=== PATIENT | female | born 1985 | race Caucasian/White ===

== ENCOUNTER 2018-06-27 11:12 | Emergency (ER) | payer SELFPAY ==
[~2018-06-27] VITALS: Ht 172.7 cm; Wt 99.8 kg
--- NOTE | 2018-06-27 11:29 | ED General ---
General Chief Complaint: Facial Problems Stated Complaint: FACIAL SWELLING Source of Information: Patient Exam Limitations: No Limitations History of Present Illness Date Seen by Provider: Jun 27, 2018 Time Seen by Provider: 11:28 Initial Comments To ER with left-sided facial swelling for about 3 days. No fevers. Painful open her mouth and chew. Timing/Duration: 2-3 Days Severity: Moderate Associated Systoms: Denies Symptoms Allergies and Home Medications Allergies Coded Allergies: No Known Drug Allergies (Unverified , 06/27/18) Home Medications No Active Prescriptions or Reported Meds Patient Home Medication List Home Medication List Reviewed: Yes Review of Systems Review of Systems Constitutional: see HPI EENTM: see HPI, mouth swelling Respiratory: no symptoms reported Cardiovascular: no symptoms reported Genitourinary: no symptoms reported Musculoskeletal: no symptoms reported Skin: no symptoms reported Psychiatric/Neurological: No Symptoms Reported Hematologic/Lymphatic: No Symptoms Reported Past Xbytkpz-Zgxgex-Prupuj Hx Patient Social History Alcohol Use: Denies Use Recreational Drug Use: No Smoking Status: Never a Smoker Recent Hopitalizations: No Immunizations Up To Date Tetanus Booster (TDap): Unknown Seasonal Allergies Seasonal Allergies: No Past Medical History Surgeries: No Respiratory: No Cardiac: No Neurological: No Genitourinary: No Gastrointestinal: No Musculoskeletal: No Endocrine: No HEENT: No Cancer: No Psychosocial: No Integumentary: No Blood Disorders: No Physical Exam Vital Signs Vital Signs - First Documented 06/27/18 11:18 Temp 96.0 Pulse 105 Resp 20 B/P (MAP) 121/92 (102) Pulse Ox 100 O2 Delivery Room Air Capillary Refill : Height, Weight, BMI Height: '" Weight: lbs. oz. kg; BMI Method: General Appearance: No Apparent Distress, WD/WN Eyes: Bilateral Eye Normal Inspection, Bilateral Eye PERRL, Bilateral Eye EOMI , Bilateral Eye Other (no double vision) HEENT: PERRL/EOMI, TMs Normal, Other (there is swelling to the left side of the face with edema of the left lower eyelid. There is no external source of infection or wound visible. There is tenderness to palpation along the left upper buccal mucosa suggesting dental abscess. CT of the face to evaluate for fluid collection versus cellulitis) Neck: Full Range of Motion, Normal Inspection Respiratory: No Accessory Muscle Use, No Respiratory Distress Cardiovascular: Regular Rate, Rhythm, Normal Peripheral Pulses Gastrointestinal: Normal Bowel Sounds, Non Tender, Soft Neurologic/Psychiatric: Alert, Oriented x3, No Motor/Sensory Deficits Skin: Normal Color, Warm/Dry Progress/Results/Core Measures Suspected Sepsis SIRS Temperature: Pulse: Respiratory Rate: Laboratory Tests 06/27/18 11:25: White Blood Count 14.1H Blood Pressure / Mean: Laboratory Tests 06/27/18 11:25: Creatinine 0.76, Platelet Count 333 Results/Orders Lab Results Laboratory Tests Test 06/27/18 11:25 Range/Units White Blood Count 14.1 H 4.3-11.0 10^3/uL Red Blood Count 5.45 4.35-5.85 10^6/uL Hemoglobin 15.3 11.5-16.0 G/DL Hematocrit 45 35-52 % Mean Corpuscular Volume 82 80-99 FL Mean Corpuscular Hemoglobin 28 25-34 PG Mean Corpuscular Hemoglobin Concent 34 32-36 G/DL Red Cell Distribution Width 13.9 10.0-14.5 % Platelet Count 333 130-400 10^3/uL Mean Platelet Volume 9.2 7.4-10.4 FL Neutrophils (%) (Auto) 72 42-75 % Lymphocytes (%) (Auto) 18 12-44 % Monocytes (%) (Auto) 10 0-12 % Eosinophils (%) (Auto) 0 0-10 % Basophils (%) (Auto) 0 0-10 % Neutrophils # (Auto) 10.2 H 1.8-7.8 X 10^3 Lymphocytes # (Auto) 2.5 1.0-4.0 X 10^3 Monocytes # (Auto) 1.4 H 0.0-1.0 X 10^3 Eosinophils # (Auto) 0.1 0.0-0.3 10^3/uL Basophils # (Auto) 0.0 0.0-0.1 10^3/uL Neutrophils % (Manual) 74 % Lymphocytes % (Manual) 17 % Monocytes % (Manual) 8 % Eosinophils % (Manual) 0 % Basophils % (Manual) 0 % Reactive Lymphocytes 1 % Blood Morphology Comment NORMAL Sodium Level 140 135-145 MMOL/L Potassium Level 3.6 3.6-5.0 MMOL/L Chloride Level 103 98-107 MMOL/L Carbon Dioxide Level 27 21-32 MMOL/L Anion Gap 10 5-14 MMOL/L Blood Urea Nitrogen 6 L 7-18 MG/DL Creatinine 0.76 0.60-1.30 MG/DL Estimat Glomerular Filtration Rate > 60 BUN/Creatinine Ratio 8 Glucose Level 104 70-105 MG/DL Calcium Level 10.3 H 8.5-10.1 MG/DL My Orders Orders - DANIEL ROMERO APRN Cbc With Automated Diff (06/27/18 11:25) Basic Metabolic Panel (06/27/18 11:25) Ct Maxillofacial W (06/27/18 11:25) Iv Heplock-Insert (Order) (06/27/18 11:25) Ketorolac Injection (Toradol Injection) (06/27/18 11:30) Clindamycin 900 Mg/50 Ml Ivpb (Cleocin P (06/27/18 11:30) Manual Differential (06/27/18 11:25) Medications Given in ED Current Medications Medications Dose Ordered Sig/Juan Manuel Route Start Time Stop Time Status Last Admin Dose Admin Clindamycin Phosphate/Dextrose 50 ml @ 100 mls/hr ONCE ONCE IV 06/27/18 11:30 06/27/18 11:59 DC 06/27/18 12:07 100 MLS/HR Ketorolac Tromethamine 15 mg ONCE ONCE IVP 06/27/18 11:30 06/27/18 11:31 DC 06/27/18 11:41 15 MG Vital Signs/I&O 06/27/18 11:18 Temp 96.0 Pulse 105 Resp 20 B/P (MAP) 121/92 (102) Pulse Ox 100 O2 Delivery Room Air Capillary Refill : Departure Impression Primary Impression: Sinusitis, acute maxillary Qualified Codes: J01.00 - Acute maxillary sinusitis, unspecified Additional Impressions: Facial cellulitis Dental infection Disposition: HOME, SELF-CARE Condition: Stable Departure-Patient Inst. Decision time for Depature: 12:50 Referrals: NO,LOCAL PHYSICIAN (PCP) Primary Care Physician KATH PARNELL DDChiquita Patient Instructions: Cellulitis (Skin Infection), Adult (DC) Add. Discharge Instructions: 1. You need to go to [facility] on on [address] today to schedule an appointment for follow-up as soon as possible.if you have your own dentist you may simply call them and make an appointment for follow-up this week. It is imperative that you take the antibiotics as directed. Pain medication. Return to ER for fevers or worsening symptoms. All discharge instructions reviewed with patient and/or family. Voiced understanding. Scripts Hydrocodone/Acetaminophen ([place] 5-325 Tablet) 1 Each Tablet 1 EACH PO Q6H PRN for PAIN-MODERATE MDD 10, #10 TAB Do not fill unless antibiotic is also filled. Prov: DANIEL ROMERO APRN 06/27/18 Penicillin V Potassium (Penicillin V Potassium) 500 Mg Tablet 500 MG PO TID, #30 TAB Prov: DANIEL ROMERO APRN 06/27/18 Work/School Note: Work Release Form Date Seen in the Emergency Department: Jun 27, 2018 Return to Work: Jun 30, 2018 DANIEL ROMERO APRN Jun 27, 2018 11:29
[2018-06-27] MEDS ORDERED: KETOROLAC 30 MG/ML VIAL IVP ONE (11:30)
[2018-06-27] MEDS ORDERED: CLINDAMYCIN 900 MG/50 ML IVPB 50 ML IV ONE (11:30)
[2018-06-27 11:36] LABS: BASOPHILS % (AUTO) 0 % (0-10); EOSINOPHILS # (AUTO) 0.1 10^3/uL (0.0-0.3); EOSINOPHILS % (AUTO) 0 % (0-10); HEMATOCRIT 45 % (35-52); HEMOGLOBIN 15.3 G/DL (11.5-16.0); LYMPHOCYTES # (AUTO) 2.5 X 10^3 (1.0-4.0); LYMPHOCYTES % (AUTO) 18 % (12-44); MEAN CORPUSCULAR HEMOGLOBIN 28 PG (25-34); MEAN CORPUSCULAR HGB CONC 34 G/DL (32-36); MEAN CORPUSCULAR VOLUME 82 FL (80-99); MEAN PLATELET VOLUME 9.2 FL (7.4-10.4); MONOCYTES # (AUTO) 1.4 X 10^3 (0.0-1.0); MONOCYTES % (AUTO) 10 % (0-12); NEUTROPHILS # (AUTO) 10.2 X 10^3 (1.8-7.8); NEUTROPHILS % (AUTO) 72 % (42-75); PLATELET COUNT 333 10^3/uL (130-400); RED CELL DISTRIBUTION WIDTH 13.9 % (10.0-14.5); WHITE BLOOD COUNT 14.1 10^3/uL (4.3-11.0)
[2018-06-27 11:53] LABS: BUN/CREATININE RATIO 8; CALCIUM 10.3 MG/DL (8.5-10.1); CARBON DIOXIDE 27 MMOL/L (21-32); CHLORIDE 103 MMOL/L (98-107); CREATININE SERUM 0.76 MG/DL (0.60-1.30); GFR ESTIMATED > 60; GLUCOSE 104 MG/DL (70-105); POTASSIUM 3.6 MMOL/L (3.6-5.0); SODIUM 140 MMOL/L (135-145)
[2018-06-27 12:23] LABS: BASOPHILS % (MANUAL) 0 %; EOSINOPHILS % (MANUAL) 0 %; LYMPHOCYTES % (MANUAL) 17 %; MONOCYTES % (MANUAL) 8 %; NEUTROPHILS % (MANUAL) 74 %; REACTIVE LYMPHOCYTES 1 %
[2018-06-27 12:24] LABS: RBC MORPH NORMAL
[2018-06-27] MEDS ORDERED: CLIN300C11 PO (12:53)
[2018-06-27] MEDS ORDERED: HYDR-4226 PO ×2 (12:53→12:58)
[2018-06-27] MEDS ORDERED: PENI500T PO (12:57)
--- NOTE | 2018-06-27 13:14 | Diagnostic Imaging Report ---
PROCEDURE: CT maxillofacial with contrast. TECHNIQUE: After intravenous administration of contrast, axial images were obtained through the face and reformatted into coronal and sagittal planes. Auto Exposure Controls were utilized during the CT exam to meet ALARA standards for radiation dose reduction. INDICATION: Left-sided facial swelling. FINDINGS: Both globes are unremarkable. No retro-orbital fluid collection is seen. Extraocular musculature appears to be symmetric bilaterally. There is soft tissue swelling in the left premaxillary tissues. Left maxillary sinus is opacified. Left facial soft tissues at the level of the mandible also show some thickening and inflammatory stranding. No discrete fluid collection is identified, however. There are some enlarged lymph nodes in the left neck. The lymph node anterior to the left submandibular gland measures 18 x 13 mm. There is slightly enlarged left jugulodigastric node measuring 18 mm x 12 mm. Submandibular and parotid glands are symmetric bilaterally. No thyroid mass is seen. Larynx and parapharyngeal fat planes are preserved. Posterior nasopharynx is unremarkable. IMPRESSION: Findings consistent with left facial cellulitis and left maxillary sinusitis. There is some probable reactive lymphadenopathy in the left neck. No fluid collection or abscess is identified. Dictated by: Dictated on workstation # [id number]
[2018-06-27 13:26] VITALS: BP 117/81
== END 2018-06-27 13:26 | disposition home or self-care (01) ==
LOC: ER 11:13
DX: J01.00 Acute maxillary sinusitis, unspecified (principal); L03.211 Cellulitis of face; K04.7 Periapical abscess without sinus
CPT/HCPCS: 36415; 70487; 80048; 85007; 85027; 96365; 96375

== ENCOUNTER 2020-04-15 19:51 | Emergency (ER) | payer SELFPAY ==
[~2020-04-15] VITALS: Ht 167 cm; Wt 90.0 kg
[~2020-04-15 19:51] MED LIST: CLIN300C12 PO; HYDR-4226 PO; PENI500T PO
--- NOTE | 2020-04-15 20:10 | ED GU-Female ---
General Chief Complaint: Female Reproductive Stated Complaint: EXCESSIVE MENSTRUAL BLEEDING / BACK PAIN Nursing Triage Note: PATIENT STATES HAS BEEN ON PERIOD TWO DAYS. STATES BLEEDING X2 HOURS HEAVY Nursing Sepsis Screen: No Definite Risk Source: patient Exam Limitations: no limitations History of Present Illness Date Seen by Provider: Apr 15, 2020 Time Seen by Provider: 20:10 Initial Comments This is a well appearing 35 yo female who presents to the ER with c/o of heavy menstrual flow and abdominal cramping. States she has been on her menstrual cycle for two days and her bleeding appears to be excessively heavy. Reports heavy menstrual cycles in the past. States she went through 3 tampons in an hour and wants to make sure she is not dying. Denies sexual activity or vaginal trauma. Denies fever, chills, cough, shortness of breath, chest pain, nausea/vomiting/diarrhea. Allergies and Home Medications Allergies Coded Allergies: No Known Drug Allergies (Unverified , 06/27/18) Home Medications Hydrocodone/Acetaminophen 1 Each Tablet, 1 EACH PO Q6H PRN for PAIN-MODERATE Do not fill unless antibiotic is also filled. Prescribed by: DANIEL ROMERO on 06/27/18 1258 Penicillin V Potassium 500 Mg Tablet, 500 MG PO TID Prescribed by: DANIEL ROMERO on 06/27/18 1257 Sulfamethoxazole/Trimethoprim 1 Each Tablet, 1 EACH PO Q12H Prescribed by: GILSON GUO on 04/15/20 2208 Patient Home Medication List Home Medication List Reviewed: Yes Review of Systems Review of Systems Constitutional: no symptoms reported EENTM: no symptoms reported Respiratory: no symptoms reported Cardiovascular: no symptoms reported Gastrointestinal: no symptoms reported Genitourinary: burning, dysuria, frequency Musculoskeletal: no symptoms reported Skin: no symptoms reported Psychiatric/Neurological: No Symptoms Reported Endocrine: No Symptoms Reported Hematologic/Lymphatic: No Symptoms Reported; Denies Blood Clots Past Sesklzo-Exveiw-Gegnnu Hx Patient Social History Recent Infectious Disease Expo: No Recent Hopitalizations: No Immunizations Up To Date Tetanus Booster (TDap): Unknown Seasonal Allergies Seasonal Allergies: No Past Medical History Surgeries: No Respiratory: No Cardiac: No Neurological: No : No Last Menstrual Period: Apr 13, 2020 Hx : 3 Hx Para: 3 Hx Total # of Abortions (Sp): 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 oz. 99.201525xv; 32.00 BMI Method:Stated General Appearance: WD/WN, no apparent distress HEENT: PERRL/EOMI, normal ENT inspection Neck: full range of motion, normal inspection Cardiovascular: normal peripheral pulses, regular rate, rhythm, no murmur Respiratory: lungs clear, normal breath sounds Gastrointestinal: normal bowel sounds, soft, tenderness (Low abd/suprapubic pain ) Genital/Rectal: normal vaginal exam; No blood at urethral meatus Pelvic: normal external exam, normal adnexa, no cerv. motion tender, no masses, vaginal bleeding, other (cervix closed) Back: normal inspection, no CVA tenderness Extremities: non-tender, normal inspection, normal capillary refill Neurologic/Psychiatric: no motor/sensory deficits, alert, normal mood/affect, oriented x 3 Skin: normal color, warm/dry Progress/Results/Core Measures Suspected Sepsis Recent Fever Within 48 Hours: No Infection Criteria Present: None New/Unexplained Altered Menta: No Sepsis Screen: No Definite Risk SIRS Temperature: Pulse: 77 Respiratory Rate: 20 Laboratory Tests 04/15/20 20:06: White Blood Count 14.2H Blood Pressure 115 /97 Mean: 103 Laboratory Tests 04/15/20 20:06: Creatinine 0.78, Platelet Count 435H, Total Bilirubin 0.3 Results/Orders Lab Results Laboratory Tests Test 04/15/20 20:06 04/15/20 20:44 04/15/20 21:54 Range/Units White Blood Count 14.2 H 4.3-11.0 10^3/uL Red Blood Count 5.24 H 3.80-5.11 10^6/uL Hemoglobin 13.8 11.5-16.0 g/dL Hematocrit 43 35-52 % Mean Corpuscular Volume 82 80-99 fL Mean Corpuscular Hemoglobin 26 25-34 pg Mean Corpuscular Hemoglobin Concent 32 32-36 g/dL Red Cell Distribution Width 13.3 10.0-14.5 % Platelet Count 435 H 130-400 10^3/uL Mean Platelet Volume 9.6 9.0-12.2 fL Immature Granulocyte % (Auto) 0 % Neutrophils (%) (Auto) 70 42-75 % Lymphocytes (%) (Auto) 22 12-44 % Monocytes (%) (Auto) 6 0-12 % Eosinophils (%) (Auto) 0 0-10 % Basophils (%) (Auto) 0 0-10 % Neutrophils # (Auto) 10.0 H 1.8-7.8 10^3/uL Lymphocytes # (Auto) 3.1 1.0-4.0 10^3/uL Monocytes # (Auto) 0.9 0.0-1.0 10^3/uL Eosinophils # (Auto) 0.1 0.0-0.3 10^3/uL Basophils # (Auto) 0.1 0.0-0.1 10^3/uL Immature Granulocyte # (Auto) 0.1 0.0-0.1 10^3/uL Neutrophils % (Manual) 75 % Lymphocytes % (Manual) 21 % Monocytes % (Manual) 3 % Blood Morphology Comment NORMAL Sodium Level 140 135-145 MMOL/L Potassium Level 4.0 3.6-5.0 MMOL/L Chloride Level 104 98-107 MMOL/L Carbon Dioxide Level 25 21-32 MMOL/L Anion Gap 11 5-14 MMOL/L Blood Urea Nitrogen 6 L 7-18 MG/DL Creatinine 0.78 0.60-1.30 MG/DL Estimat Glomerular Filtration Rate > 60 BUN/Creatinine Ratio 8 Glucose Level 103 70-105 MG/DL Calcium Level 9.7 8.5-10.1 MG/DL Corrected Calcium 9.4 8.5-10.1 MG/DL Total Bilirubin 0.3 0.1-1.0 MG/DL Aspartate Amino Transf (AST/SGOT) 18 5-34 U/L Alanine Aminotransferase (ALT/SGPT) 29 0-55 U/L Alkaline Phosphatase 90 40-136 U/L Total Protein 7.8 6.4-8.2 GM/DL Albumin 4.4 3.2-4.5 GM/DL Serum Test, Qualitative NEGATIVE NEGATIVE Urine Color YELLOW Urine Clarity CLEAR Urine pH 6.0 5-9 Urine Specific [place] >=1.030 1.016-1.022 Urine Protein 2+ H NEGATIVE Urine Glucose (UA) NEGATIVE NEGATIVE Urine Ketones NEGATIVE NEGATIVE Urine Nitrite POSITIVE H NEGATIVE Urine Bilirubin NEGATIVE NEGATIVE Urine Urobilinogen 0.2 < = 1.0 MG/DL Urine Leukocyte Esterase TRACE H NEGATIVE Urine RBC (Auto) 2+ H NEGATIVE Urine RBC 10-25 H /HPF Urine WBC 10-25 H /HPF Urine Crystals NONE /LPF Urine Bacteria LARGE H /HPF Urine Casts NONE /LPF Urine Mucus LARGE H /LPF Urine Culture Indicated YES Urine Opiates Screen NEGATIVE NEGATIVE Urine Oxycodone Screen NEGATIVE NEGATIVE Urine Methadone Screen NEGATIVE NEGATIVE Urine Propoxyphene Screen NEGATIVE NEGATIVE Urine Barbiturates Screen NEGATIVE NEGATIVE Ur Tricyclic Antidepressants Screen NEGATIVE NEGATIVE Urine Phencyclidine Screen NEGATIVE NEGATIVE Urine Amphetamines Screen POSITIVE H NEGATIVE Urine Methamphetamines Screen POSITIVE H NEGATIVE Urine Benzodiazepines Screen NEGATIVE NEGATIVE Urine Cocaine Screen NEGATIVE NEGATIVE Urine Cannabinoids Screen POSITIVE H NEGATIVE Micro Results Microbiology 04/15/20 Genital Culture - Preliminary, Resulted 04/15/20 Wet Prep - Final, Resulted 04/15/20 Urine Culture - Preliminary, Resulted Gram Negative Azeem My Orders Orders - GILSON GUO ALL AROUND PATTERNMAKER Cbc With Automated Diff (04/15/20 20:09) Comprehensive Metabolic Panel (04/15/20 20:09) Hcg,Qualitative Serum (04/15/20 20:09) Manual Differential (04/15/20 20:06) Strain Urine (04/15/20 20:32) Ua Culture If Indicated (04/15/20 20:32) Ketorolac Injection (Toradol Injection) (04/15/20 20:45) Drug Screen Stat (Urine) (04/15/20 20:39) Iohexol Injection (Omnipaque 350 Mg/Ml 1 (04/15/20 21:00) Received Contrast (Hold Metformin- Contr (04/15/20 21:00) Ns (Ivpb) (Sodium Chloride 0.9% Ivpb Bag (04/15/20 21:00) Ct Abdomen/Pelvis W (04/15/20 20:32) Urine Culture (04/15/20 20:44) Ceftriaxone For Iv Use (Rocephin For I (04/15/20 21:30) Neisseria Gonorrhea Swab (04/15/20 21:57) Genital Culture (04/15/20 21:57) Chlamydia Trachomatis Swab (04/15/20 21:57) Azithromycin Tablet (Zithromax Tablet) (04/15/20 22:15) Wet Prep (04/15/20 21:54) Medications Given in ED Vital Signs/I&O Capillary Refill : Less Than 3 Seconds Blood Pressure Mean: 103 Progress Note : Progress Note Pt. examined and appears very anxious. She appears to be under the influence of an illicit substance, will ad UDS to UA. Labs ordered to assess Hgb and signs of infection. CT abd/pelvis ordered to r/o any abdominal sources of infection. Toradol 30mg IVP ordered for pain. CT abd/pelvis reviewed, incidental cholelithiasis with no evidence of cho lecystitis. No acute findings. Labs reviewed, elevated WBC-14.2, Hgb stable. She is noted to have UTI. Additionally, she is positive for methamphetamines and cannabis. Orders placed for STI testing, and Rocephin 1gm IVP and Azithromycin 1000mg PO x1. Reviewed discharge POC and she is agreeable with plan. Diagnostic Imaging Diagonstic Imaging: CT Plain Films/CT/US/NM/MRI: abdomen, pelvis Comments Date of Exam:04/15/20 CT ABDOMEN/PELVIS W TECHNIQUE: CT abdomen and pelvis with contrast. All CT scans use one or more of the following dose optimizing techniques: automated exposure control, MA and/or KvP adjustment based on patient size and exam type or iterative reconstruction. INDICATION: Lower abdominal pain and menorrhagia. Vaginal bleeding for two days. COMPARISON STUDIES: None. FINDINGS: The lung bases are clear. There is fatty liver. There is a 2.2 cm gallstone. The spleen, pancreas, adrenal glands and kidneys appear normal. There is a normal appendix. The uterus and adnexal structures appear normal. Bowel loops demonstrate no inflammatory or obstructive changes. There is no ascites or free air. There is some air within the urinary bladder. This could be due to infection or iatrogenic. The osseous structures appear unremarkable. IMPRESSION: 1. Cholelithiasis. 2. There is some air in the urinary bladder which could be due to infection or iatrogenic. Dictated by: Dictated on workstation # [id number] Dict: 04/15/202137 Trans: 04/15/202154 [facility] [id number] Interpreted by: SHELLI DAMON MD Electronically signed by: SHELLI DAMON MD 04/15/20 [id number] Reviewed: Reviewed by Me Departure Impression Primary Impression: Menorrhagia with irregular cycle Additional Impression: Urinary tract infection Disposition: HOME, SELF-CARE Condition: Improved Departure-Patient Inst. Decision time for Depature: 22:05 Referrals: NO,LOCAL PHYSICIAN (PCP) Primary Care Physician Patient Instructions: Urinary Tract Infections in Adults, Heavy Periods (DC) Add. Discharge Instructions: Plan: 1. Discharge home. Take antibiotics as directed and complete full course. 2. May take Tylenol or Ibuprofen as needed for pain per package instructions. 3. Follow up with [facility] regarding your heavy menstrual cycles and to ensure your UTI is resolved. 4. Return for any new or concerning symptoms. All discharge instructions reviewed with patient and/or family. Voiced understanding. Scripts Sulfamethoxazole/Trimethoprim (Bactrim Ds Tablet) 1 Each Tablet 1 EACH PO Q12H for 10 Days, #20 TAB 0 Refills Prov: GILSON GUO [employer] AROUND PATTERNMAKER 04/15/20 Work/School Note: Work Release Form Date Seen in the Emergency Department: Apr 15, 2020 Return to Work: Apr 17, 2020 Restrictions: No Restrictions GILSON GUO [employer] AR[employer] PATTERNMAKER Apr 15, 2020 20:10
[2020-04-15 20:25] LABS: BASOPHILS # (AUTO) 0.1 10^3/uL (0.0-0.1); BASOPHILS % (AUTO) 0 % (0-10); EOSINOPHILS # (AUTO) 0.1 10^3/uL (0.0-0.3); EOSINOPHILS % (AUTO) 0 % (0-10); HEMATOCRIT 43 % (35-52); HEMOGLOBIN 13.8 g/dL (11.5-16.0); LYMPHOCYTES # (AUTO) 3.1 10^3/uL (1.0-4.0); LYMPHOCYTES % (AUTO) 22 % (12-44); MEAN CORPUSCULAR HEMOGLOBIN 26 pg (25-34); MEAN CORPUSCULAR HGB CONC 32 g/dL (32-36); MEAN CORPUSCULAR VOLUME 82 fL (80-99); MEAN PLATELET VOLUME 9.6 fL (9.0-12.2); MONOCYTES # (AUTO) 0.9 10^3/uL (0.0-1.0); MONOCYTES % (AUTO) 6 % (0-12); NEUTROPHILS % (AUTO) 70 % (42-75); PLATELET COUNT 435 10^3/uL (130-400); WHITE BLOOD COUNT 14.2 10^3/uL (4.3-11.0)
[2020-04-15 20:42] LABS: ALBUMIN 4.4 GM/DL (3.2-4.5)
[2020-04-15 20:43] LABS: CHLORIDE 104 MMOL/L (98-107); SODIUM 140 MMOL/L (135-145)
[2020-04-15 20:44] LABS: CALCIUM 9.7 MG/DL (8.5-10.1)
[2020-04-15 20:45] LABS: GLUCOSE 103 MG/DL (70-105); TOTAL PROTEIN 7.8 GM/DL (6.4-8.2)
[2020-04-15] MEDS ORDERED: KETOROLAC 30 MG/ML VIAL IVP ONE (20:45)
[2020-04-15 20:46] LABS: CARBON DIOXIDE 25 MMOL/L (21-32)
[2020-04-15 20:47] LABS: BILIRUBIN,TOTAL 0.3 MG/DL (0.1-1.0)
[2020-04-15 20:48] LABS: ALKALINE PHOSPHATASE 90 U/L (40-136)
[2020-04-15 20:49] LABS: CREATININE SERUM 0.78 MG/DL (0.60-1.30); GFR ESTIMATED > 60
[2020-04-15 20:50] LABS: BUN/CREATININE RATIO 8
[2020-04-15 20:51] LABS: BILIRUBIN,URINE NEGATIVE (NEGATIVE); CLARITY,URINE CLEAR; COLOR,URINE YELLOW; GLUCOSE, URINE (UA) NEGATIVE (NEGATIVE); KETONES,URINE NEGATIVE (NEGATIVE); LEUKOCYTE ESTERASE ,URINE TRACE (NEGATIVE); NITRITE,URINE POSITIVE (NEGATIVE); PROTEIN,URINE 2+ (NEGATIVE)
[2020-04-15 20:52] LABS: ALANINE AMINOTRANSFERASE 29 U/L (0-55)
[2020-04-15] MEDS ORDERED: HOLD METFORMIN - RECEIVED CONTRAST 20 ML VIAL IV SCH (21:00)
[2020-04-15] MEDS ORDERED: NS 100 ML (IVPB) BAG IV ONE (21:00)
[2020-04-15] MEDS ORDERED: IOHEXOL 350 MG/ML 100 ML (OMNIPAQUE 350) VIAL IV ONE (21:00)
[2020-04-15 21:06] LABS: BACTERIA,URINE LARGE /HPF
[2020-04-15 21:07] LABS: LYMPHOCYTES % (MANUAL) 21 %; MONOCYTES % (MANUAL) 3 %; NEUTROPHILS % (MANUAL) 75 %; RBC MORPH NORMAL
[2020-04-15 21:11] LABS: AMPHETAMINE SCREEN, URINE POSITIVE (NEGATIVE); BARBITURATE SCREEN URINE NEGATIVE (NEGATIVE); BENZODIAZEPINES SCREEN URINE NEGATIVE (NEGATIVE); CANNABINOID SCREEN, URINE POSITIVE (NEGATIVE); COCAINE SCREEN URINE NEGATIVE (NEGATIVE); METHADONE STAT NEGATIVE (NEGATIVE); METHAMPHETAMINE SCREEN URINE S POSITIVE (NEGATIVE); OPIATE SCREEN URINE NEGATIVE (NEGATIVE); OXYCODONE STAT NEGATIVE (NEGATIVE); PROPOXYPHENE STAT NEGATIVE (NEGATIVE); TRICYCLIC ANTIDEPRESSANTS SCRE NEGATIVE (NEGATIVE)
[2020-04-15] MEDS ORDERED: cefTRIAXone FOR IV USE 1,000 MG in WATER (STERILE) FOR INJECTION 10 ML IV ONE (21:30)
--- NOTE | 2020-04-15 21:47 | Diagnostic Imaging Report ---
TECHNIQUE: CT abdomen and pelvis with contrast. All CT scans use one or more of the following dose optimizing techniques: automated exposure control, MA and/or KvP adjustment based on patient size and exam type or iterative reconstruction. INDICATION: Lower abdominal pain and menorrhagia. Vaginal bleeding for two days. COMPARISON STUDIES: None. FINDINGS: The lung bases are clear. There is fatty liver. There is a 2.2 cm gallstone. The spleen, pancreas, adrenal glands and kidneys appear normal. There is a normal appendix. The uterus and adnexal structures appear normal. Bowel loops demonstrate no inflammatory or obstructive changes. There is no ascites or free air. There is some air within the urinary bladder. This could be due to infection or iatrogenic. The osseous structures appear unremarkable. IMPRESSION: 1. Cholelithiasis. 2. There is some air in the urinary bladder which could be due to infection or iatrogenic. Dictated by: Dictated on workstation # [id number]
[2020-04-15] MEDS ORDERED: SULF1TAB35 PO (22:08)
[2020-04-15] MEDS ORDERED: AZITHROMYCIN 250 MG TAB (ZITHROMAX) PO ONE (22:15)
[2020-04-15 22:19] VITALS: BP 122/50
== END 2020-04-15 22:27 | disposition home or self-care (01) ==
LOC: EDUNIT# 19:51 → ER 19:53
DX: N92.1 Excessive and frequent menstruation with irregular cycle (principal); K80.20 Calculus of gallbladder without cholecystitis without obstruction; F15.10 Other stimulant abuse, uncomplicated; F12.10 Cannabis abuse, uncomplicated; Z98.51 Tubal ligation status; Z32.02 Encounter for pregnancy test, result negative
CPT/HCPCS: 36415; 51702; 74177; 80053; 80306; 81000; 84703; 85007; 85027; 87070; 87088; 87205; 87210; 87491; 87591

== ENCOUNTER 2020-07-09 20:13 | Emergency (ER) | payer SELFPAY ==
[~2020-07-09] VITALS: Ht 167 cm; Wt 90.0 kg
[~2020-07-09 20:13] MED LIST changes: +SULF1TAB35 PO
--- NOTE | 2020-07-09 20:27 | ED General ---
General Chief Complaint: - Urinary Stated Complaint: CHILLS/BACK PAIN Source of Information: Patient Exam Limitations: No Limitations History of Present Illness Date Seen by Provider: Jul 09, 2020 Time Seen by Provider: 20:15 Initial Comments To ER with reports of chills and upper back pain. She had some reddened bumps on her upper back noticed first last week. They put some Band-Aids over it. Today she had some chills and felt very hot. She then had a tingling sensation in both of her hands. No cough no fevers no shortness of breath. No nausea no vomiting. Timing/Duration: 2-3 Days Severity: Moderate Associated Systoms: No Chest Pain, No Cough, No Diaphoresis; Fever/Chills Allergies and Home Medications Allergies Coded Allergies: No Known Drug Allergies (Unverified , 06/27/18) Home Medications Hydrocodone/Acetaminophen 1 Each Tablet, 1 EACH PO Q6H PRN for PAIN-MODERATE Do not fill unless antibiotic is also filled. Prescribed by: DANIEL ROMERO on 06/27/18 1258 Penicillin V Potassium 500 Mg Tablet, 500 MG PO TID Prescribed by: DANIEL ROMERO on 06/27/18 1257 Sulfamethoxazole/Trimethoprim 1 Each Tablet, 1 EACH PO Q12H Prescribed by: GILSON GUO on 04/15/20 2208 Patient Home Medication List Home Medication List Reviewed: Yes Review of Systems Review of Systems Constitutional: see HPI, chills; No fever EENTM: see HPI Respiratory: no symptoms reported Cardiovascular: no symptoms reported Genitourinary: no symptoms reported Musculoskeletal: no symptoms reported Skin: no symptoms reported Psychiatric/Neurological: No Symptoms Reported Hematologic/Lymphatic: No Symptoms Reported Immunological/Allergic: no symptoms reported Past Fjyawkt-Ycnzku-Adrkpq Hx Patient Social History Recent Hopitalizations: No Immunizations Up To Date Tetanus Booster (TDap): Unknown Seasonal Allergies Seasonal Allergies: No Past Medical History Surgeries: No Respiratory: No Cardiac: No 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 oz. 99.690924qs; 32.00 BMI Method:Stated General Appearance: No Apparent Distress, WD/WN, Anxious, Other (Somnolent, makes poor eye contact. Normal vital sign.) Eyes: Bilateral Eye Normal Inspection, Bilateral Eye PERRL, Bilateral Eye EOMI HEENT: PERRL/EOMI, TMs Normal, Other (She complains of right earache but the ear canal is normal the tympanic membrane is normal pearly irvero without fluid behind it or erythema. The mastoid process appears normal.) Neck: Full Range of Motion, Normal Inspection Respiratory: No Accessory Muscle Use, No Respiratory Distress Cardiovascular: Regular Rate, Rhythm, Normal Peripheral Pulses Gastrointestinal: Normal Bowel Sounds, Non Tender, Soft Extremity: Normal Capillary Refill, Normal Inspection Neurologic/Psychiatric: Alert, Oriented x3 Skin: Normal Color, Warm/Dry, Other ( to pea-sized areas of erythema and induration to the mid upper back without drainage.) Progress/Results/Core Measures Suspected Sepsis SIRS Temperature: Pulse: Respiratory Rate: Laboratory Tests 07/09/20 20:30: White Blood Count 11.6H Blood Pressure / Mean: Laboratory Tests 07/09/20 20:30: Creatinine 0.70, Platelet Count 435H, Total Bilirubin 0.2 Results/Orders Lab Results Laboratory Tests Test 07/09/20 20:30 Range/Units White Blood Count 11.6 H 4.3-11.0 10^3/uL Red Blood Count 4.82 3.80-5.11 10^6/uL Hemoglobin 10.7 L 11.5-16.0 g/dL Hematocrit 36 35-52 % Mean Corpuscular Volume 74 L 80-99 fL Mean Corpuscular Hemoglobin 22 L 25-34 pg Mean Corpuscular Hemoglobin Concent 30 L 32-36 g/dL Red Cell Distribution Width 14.6 H 10.0-14.5 % Platelet Count 435 H 130-400 10^3/uL Mean Platelet Volume 9.0 9.0-12.2 fL Immature Granulocyte % (Auto) 0 % Neutrophils (%) (Auto) 61 42-75 % Lymphocytes (%) (Auto) 30 12-44 % Monocytes (%) (Auto) 7 0-12 % Eosinophils (%) (Auto) 1 0-10 % Basophils (%) (Auto) 0 0-10 % Neutrophils # (Auto) 7.1 1.8-7.8 10^3/uL Lymphocytes # (Auto) 3.5 1.0-4.0 10^3/uL Monocytes # (Auto) 0.9 0.0-1.0 10^3/uL Eosinophils # (Auto) 0.1 0.0-0.3 10^3/uL Basophils # (Auto) 0.1 0.0-0.1 10^3/uL Immature Granulocyte # (Auto) 0.1 0.0-0.1 10^3/uL Sodium Level 141 135-145 MMOL/L Potassium Level 3.5 L 3.6-5.0 MMOL/L Chloride Level 103 98-107 MMOL/L Carbon Dioxide Level 25 21-32 MMOL/L Anion Gap 13 5-14 MMOL/L Blood Urea Nitrogen 9 7-18 MG/DL Creatinine 0.70 0.60-1.30 MG/DL Estimat Glomerular Filtration Rate > 60 BUN/Creatinine Ratio 13 Glucose Level 98 70-105 MG/DL Calcium Level 9.6 8.5-10.1 MG/DL Corrected Calcium 9.3 8.5-10.1 MG/DL Total Bilirubin 0.2 0.1-1.0 MG/DL Aspartate Amino Transf (AST/SGOT) 14 5-34 U/L Alanine Aminotransferase (ALT/SGPT) 14 0-55 U/L Alkaline Phosphatase 95 40-136 U/L C-Reactive Protein High Sensitivity 0.56 H 0.00-0.50 MG/DL Total Protein 7.8 6.4-8.2 GM/DL Albumin 4.4 3.2-4.5 GM/DL My Orders Orders - DANIEL ROMERO APRN Ua Culture If Indicated (07/09/20 20:16) Hcg,Qualitative Urine (07/09/20 20:16) Hs C Reactive Protein (07/09/20 20:24) Cbc With Automated Diff (07/09/20 20:24) Drug Screen Stat (Urine) (07/09/20 20:24) Comprehensive Metabolic Panel (07/09/20 20:24) Ed Iv/Invasive Line Start (07/09/20 20:24) Ns Iv 1000 Ml (Sodium Chloride 0.9%) (07/09/20 20:30) Ketorolac Injection (Toradol Injection) (07/09/20 21:45) Medications Given in ED Current Medications Medications Dose Ordered Sig/Juan Manuel Route Start Time Stop Time Status Last Admin Dose Admin Ketorolac Tromethamine 15 mg ONCE ONCE IVP 07/09/20 21:45 07/09/20 21:46 DC 07/09/20 21:46 15 MG Vital Signs/I&O Capillary Refill : Departure Communication (Admissions) 9810-patient states that she is still unable to produce a urine and she does not feel any better. She is very somnolent and continues to make poor eye contact. Impression Primary Impression: General symptom Disposition: 01 HOME, SELF-CARE Condition: Stable Departure-Patient Inst. Decision time for Depature: 21:55 Referrals: NO,LOCAL PHYSICIAN (PCP/Family) Primary Care Physician Patient Instructions: NO INSTRUCTIONS GIVEN Add. Discharge Instructions: All discharge instructions reviewed with patient and/or family. Voiced understanding. DANIEL ROMERO DICE SPOTTER Jul 09, 2020 20:27
[2020-07-09] MEDS ORDERED: NS IV 1000 ML 1,000 ML IV SCH (20:30)
[2020-07-09 20:38] LABS: BASOPHILS # (AUTO) 0.1 10^3/uL (0.0-0.1); BASOPHILS % (AUTO) 0 % (0-10); EOSINOPHILS # (AUTO) 0.1 10^3/uL (0.0-0.3); EOSINOPHILS % (AUTO) 1 % (0-10); HEMATOCRIT 36 % (35-52); HEMOGLOBIN 10.7 g/dL (11.5-16.0); LYMPHOCYTES # (AUTO) 3.5 10^3/uL (1.0-4.0); LYMPHOCYTES % (AUTO) 30 % (12-44); MEAN CORPUSCULAR HEMOGLOBIN 22 pg (25-34); MEAN CORPUSCULAR HGB CONC 30 g/dL (32-36); MEAN CORPUSCULAR VOLUME 74 fL (80-99); MONOCYTES # (AUTO) 0.9 10^3/uL (0.0-1.0); MONOCYTES % (AUTO) 7 % (0-12); NEUTROPHILS # (AUTO) 7.1 10^3/uL (1.8-7.8); NEUTROPHILS % (AUTO) 61 % (42-75); PLATELET COUNT 435 10^3/uL (130-400); WHITE BLOOD COUNT 11.6 10^3/uL (4.3-11.0)
[2020-07-09 20:51] LABS: ALBUMIN 4.4 GM/DL (3.2-4.5); CHLORIDE 103 MMOL/L (98-107); POTASSIUM 3.5 MMOL/L (3.6-5.0); SODIUM 141 MMOL/L (135-145)
[2020-07-09 20:52] LABS: CALCIUM 9.6 MG/DL (8.5-10.1)
[2020-07-09 20:54] LABS: GLUCOSE 98 MG/DL (70-105); TOTAL PROTEIN 7.8 GM/DL (6.4-8.2)
[2020-07-09 20:55] LABS: BILIRUBIN,TOTAL 0.2 MG/DL (0.1-1.0); CARBON DIOXIDE 25 MMOL/L (21-32)
[2020-07-09 20:57] LABS: ALKALINE PHOSPHATASE 95 U/L (40-136)
[2020-07-09 20:58] LABS: GFR ESTIMATED > 60
[2020-07-09 20:59] LABS: BUN/CREATININE RATIO 13
[2020-07-09 21:00] LABS: ALANINE AMINOTRANSFERASE 14 U/L (0-55)
[2020-07-09] MEDS ORDERED: KETOROLAC 30 MG/ML VIAL IVP ONE (21:45)
[2020-07-09 22:11] LABS: BILIRUBIN,URINE NEGATIVE (NEGATIVE); CLARITY,URINE CLEAR; COLOR,URINE YELLOW; GLUCOSE, URINE (UA) NEGATIVE (NEGATIVE); KETONES,URINE NEGATIVE (NEGATIVE); LEUKOCYTE ESTERASE ,URINE NEGATIVE (NEGATIVE); NITRITE,URINE NEGATIVE (NEGATIVE); PH,URINE 7.5 (5-9); PROTEIN,URINE 1+ (NEGATIVE)
[2020-07-09] MEDS ORDERED: ONDANSETRON 4 MG/2 ML (SDV) Z0FRAN IVP ONE (22:15)
[2020-07-09 22:17] LABS: BACTERIA,URINE TRACE /HPF; RBC,URINE 0-2 /HPF; WBC,URINE RARE /HPF
[2020-07-09 22:18] LABS: AMORPHOUS SEDIMENT,UR FEW AMOR PHOSPHATE /LPF; HCG,QUALITATIVE URINE NEGATIVE (NEGATIVE)
[2020-07-09 22:24] LABS: AMPHETAMINE SCREEN, URINE POSITIVE (NEGATIVE); BARBITURATE SCREEN URINE NEGATIVE (NEGATIVE); BENZODIAZEPINES SCREEN URINE NEGATIVE (NEGATIVE); CANNABINOID SCREEN, URINE POSITIVE (NEGATIVE); COCAINE SCREEN URINE NEGATIVE (NEGATIVE); METHADONE STAT NEGATIVE (NEGATIVE); METHAMPHETAMINE SCREEN URINE S POSITIVE (NEGATIVE); OPIATE SCREEN URINE NEGATIVE (NEGATIVE); OXYCODONE STAT NEGATIVE (NEGATIVE); PROPOXYPHENE STAT NEGATIVE (NEGATIVE); TRICYCLIC ANTIDEPRESSANTS SCRE NEGATIVE (NEGATIVE)
[2020-07-09 22:36] VITALS: BP 112/52
== END 2020-07-09 22:37 | disposition home or self-care (01) ==
LOC: EDUNIT# 20:13 → ER 20:14
DX: R68.89 Other general symptoms and signs (principal)
CPT/HCPCS: 36415; 80053; 80306; 81000; 84703; 85025; 86141

== ENCOUNTER 2021-06-06 16:53 | Emergency (ER) | payer SELFPAY ==
[~2021-06-06] VITALS: Ht 170.2 cm; Wt 88.5 kg
[~2021-06-06 16:53] MED LIST changes: +CLIN-144 PO; -CLIN300C12 PO; -SULF1TAB35 PO; +SULF1TAB38 PO
[2021-06-06] MEDS ORDERED: fentaNYL INJ 100 MCG/2 ML AMP IVP ONE (17:15)
[2021-06-06] MEDS ORDERED: CLINDAMYCIN 900 MG/50 ML IVPB 50 ML IV ONE (17:15)
[2021-06-06] MEDS ORDERED: CLIN-144 PO (17:15)
[2021-06-06] MEDS ORDERED: LORazepam INJ 2 MG/ML (ATIVAN) VIAL IVP PRN (17:15)
[2021-06-06] MEDS ORDERED: ACHD5005 PO (17:15)
[2021-06-06] MEDS ORDERED: LACTATED RINGERS 1,000 ML IV SCH (17:15)
--- NOTE | 2021-06-06 17:16 | ED EENT ---
History of Present Illness General Chief Complaint: Dental Problems/Pain Stated Complaint: L SIDE OF JAW SWELLING Nursing Triage Note: PT AMB TO [facility] 8 WITH COMPLAINT OF LEFT UPPER TOOTH PAIN. STATES SWELLING STARTED YESTERDAY AND WORSENED TODAY. Source: patient Exam Limitations: no limitations History of Present Illness Date Seen by Provider: Jun 06, 2021 Time Seen by Provider: 17:11 Initial Comments To ER with left upper dental pain and left facial swelling. This began on 06/04/2021 when she bit down on a piece of popcorn too hard. Then yest erday she developed some left-sided gum swelling and today she has left-sided facial swelling. She has used meth and marijuana but she states none recently. Timing/Duration: abrupt Severity: moderate Location: facial, dental Prearrival Treatment: no prearrival treatment Associated Symptoms: facial pain/swelling, tooth pain Allergies and Home Medications Allergies Coded Allergies: No Known Drug Allergies (Unverified , 06/27/18) Patient Home Medication List Home Medication List Reviewed: Yes Amoxicillin (Amoxicillin) 500 Mg Capsule, 500 MG PO TID Prescribed by: DANIEL ROMERO on 06/06/21 1821 Hydrocodone/Acetaminophen (Hydrocodone/Acetaminophen 5 MG/325 MG TAB) 1 Each Tablet, 1 EACH PO Q6H PRN for PAIN-MODERATE Prescribed by: DANIEL ROMERO on 06/27/18 1258 Hydrocodone/Acetaminophen (Hydrocodone-Acetamin 5-325 mg) 1 Each Tablet, 1 TAB PO Q4H PRN for PAIN-MODERATE (5-7) Prescribed by: DANIEL ROMERO on 06/06/21 1716 Penicillin V Potassium (Penicillin V Potassium) 500 Mg Tablet, 500 MG PO TID Prescribed by: DANIEL ROMERO on 06/27/18 1257 Sulfamethoxazole/Trimethoprim (Bactrim Ds Tablet) 1 Each Tablet, 1 EACH PO Q12H Prescribed by: GILSON GUO on 04/15/20 2208 Discontinued Medications Clindamycin HCl (Clindamycin HCl) 300 Mg Capsule, 300 MG PO TID Prescribed by: DANIEL ROMERO on 06/06/21 1715 Review of Systems Review of Systems Constitutional: see HPI Eyes: No Symptoms Reported Ears: No Symptoms Reported Nose: no symptoms reported Mouth: see HPI, pain Throat: no symptoms reported Respiratory: no symptoms reported Cardiovascular: no symptoms reported Musculoskeletal: no symptoms reported Skin: no symptoms reported Neurological: No Symptoms Reported Hematologic/Lymphatic: No Symptoms Reported Past Rwjlwnl-Crpbkb-Pikwgg Hx Patient Social History Tobacco Use?: No Use of E-Cig and/or Vaping dev: No Substance use?: Yes Substance type: Methamphetamine, Marijuana Alcohol Use?: No Pt feels they are or have been: No Immunizations Up To Date Tetanus Booster (TDap): Unknown Seasonal Allergies Seasonal Allergies: No Past Medical History Surgeries: No Respiratory: No Cardiac: No 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 oz. 99.334125of; 30.00 BMI Method:Stated General Appearance: WD/WN, no apparent distress Eyes: bilateral eye normal inspection, bilateral eye PERRL, bilateral eye EOMI Ears: bilateral ear auricle normal, bilateral ear canal normal, bilateral ear TM normal Mouth/Throat: pharynx normal, other (Recent to the left upper molars there is some gingival buccal swelling and fluctuance.) Neck: non-tender, full range of motion Cardiovascular: no murmur, tachycardia Respiratory: no respiratory distress, no accessory muscle use Gastrointestinal: normal bowel sounds, non tender Neurologic/Psychiatric: alert, normal mood/affect, oriented x 3 Skin: normal color, warm/dry Progress/Results/Core Measures Results/Orders Lab Results Laboratory Tests Test 06/06/21 17:48 Range/Units White Blood Count 12.3 H 4.3-11.0 10^3/uL Red Blood Count 4.88 3.80-5.11 10^6/uL Hemoglobin 11.3 L 11.5-16.0 g/dL Hematocrit 37 35-52 % Mean Corpuscular Volume 76 L 80-99 fL Mean Corpuscular Hemoglobin 23 L 25-34 pg Mean Corpuscular Hemoglobin Concent 31 L 32-36 g/dL Red Cell Distribution Width 15.5 H 10.0-14.5 % Platelet Count 473 H 130-400 10^3/uL Mean Platelet Volume 9.3 9.0-12.2 fL Immature Granulocyte % (Auto) 0 % Neutrophils (%) (Auto) 77 H 42-75 % Lymphocytes (%) (Auto) 14 12-44 % Monocytes (%) (Auto) 9 0-12 % Eosinophils (%) (Auto) 0 0-10 % Basophils (%) (Auto) 0 0-10 % Neutrophils # (Auto) 9.4 H 1.8-7.8 10^3/uL Lymphocytes # (Auto) 1.7 1.0-4.0 10^3/uL Monocytes # (Auto) 1.1 H 0.0-1.0 10^3/uL Eosinophils # (Auto) 0.1 0.0-0.3 10^3/uL Basophils # (Auto) 0.0 0.0-0.1 10^3/uL Immature Granulocyte # (Auto) 0.0 0.0-0.1 10^3/uL Sodium Level 136 135-145 MMOL/L Potassium Level 3.4 L 3.6-5.0 MMOL/L Chloride Level 102 98-107 MMOL/L Carbon Dioxide Level 20 L 21-32 MMOL/L Anion Gap 14 5-14 MMOL/L Blood Urea Nitrogen 6 L 7-18 MG/DL Creatinine 0.69 0.60-1.30 MG/DL Estimat Glomerular Filtration Rate 115 BUN/Creatinine Ratio 9 Glucose Level 96 70-105 MG/DL Calcium Level 9.7 8.5-10.1 MG/DL Serum Test, Qualitative NEGATIVE NEGATIVE My Orders Orders - DANIEL ROMERO APRN Cbc With Automated Diff (06/06/21 17:10) Basic Metabolic Panel (06/06/21 17:10) Hcg,Qualitative Serum (06/06/21 17:10) Ed Iv/Invasive Line Start (06/06/21 17:10) Lorazepam Injection (Ativan Injection) (06/06/21 17:15) Fentanyl Inj (Sublimaze Injection) (06/06/21 17:15) Lactated Ringers (Lr 1000 Ml Iv Solution (06/06/21 17:15) Clindamycin 900 Mg/50 Ml Ivpb (Cleocin P (06/06/21 17:15) Rx-Clindamycin Capsule (Rx-Cleocin Capsu (06/06/21 18:18) Rx-Hydrocodone/Apap 5-325 Mg (Rx-Vicodin (06/06/21 18:30) Medications Given in ED Current Medications Medications Dose Ordered Sig/Juan Manuel Route Start Time Stop Time Status Last Admin Dose Admin Fentanyl Citrate 50 mcg ONCE ONCE IVP 06/06/21 17:15 06/06/21 17:16 DC 06/06/21 17:47 50 MCG Lorazepam 0.5 mg ONCE PRN IVP 06/06/21 17:15 06/06/21 17:47 0.5 MG Vital Signs/I&O 06/06/21 17:00 Pulse 118 Resp 18 B/P (MAP) 138/100 (113) Pulse Ox 100 O2 Delivery Room Air Blood Pressure Mean: 113 Departure Communication (Admissions) 1822-We will give her clindamycin here and as a take home but she does not have insurance and pays [place] for her medications. She will not likely be able to pay for her clindamycin prescription so instead will use amoxicillin outpatient. Procedure note: Did some local anesthesia with 1 mL of 1% lidocaine without epinephrine overlying the fluctuant area on the gingival buccal fold left side. Then used an 11 blade scalpel to make an incision. Moderate amount of purulent material expressed. 2 x 2 piece of gauze folded up placed over the incision. Impression Primary Impression: Dental abscess Disposition: 01 HOME, SELF-CARE Condition: Stable Departure-Patient Inst. Decision time for Depature: 17:14 Referrals: NO,LOCAL PHYSICIAN (PCP/Family) Primary Care Physician Patient Instructions: Tooth Abscess (DC) Add. Discharge Instructions: 1. Call a dentist of your choosing tomorrow to make an appointment to be seen for follow-up. Return to ER for any worsening. Is very important to take antibiotics as directed. All discharge instructions reviewed with patient and/or family. Voiced understanding. Scripts Amoxicillin (Amoxicillin) 500 Mg Capsule 500 MG PO TID, #21 CAP 0 Refills Prov: DANIEL ROMERO APRN 06/06/21 Hydrocodone/Acetaminophen (Hydrocodone-Acetamin 5-325 mg) 1 Each Tablet 1 TAB PO Q4H PRN for PAIN-MODERATE (5-7), #10 TAB Prov: DANIEL ROMERO APRN 06/06/21 DANIEL ROMERO APRN Jun 06, 2021 17:16
[2021-06-06 17:54] LABS: BASOPHILS % (AUTO) 0 % (0-10); EOSINOPHILS # (AUTO) 0.1 10^3/uL (0.0-0.3); EOSINOPHILS % (AUTO) 0 % (0-10); HEMATOCRIT 37 % (35-52); HEMOGLOBIN 11.3 g/dL (11.5-16.0); LYMPHOCYTES # (AUTO) 1.7 10^3/uL (1.0-4.0); LYMPHOCYTES % (AUTO) 14 % (12-44); MEAN CORPUSCULAR HEMOGLOBIN 23 pg (25-34); MEAN CORPUSCULAR HGB CONC 31 g/dL (32-36); MEAN CORPUSCULAR VOLUME 76 fL (80-99); MEAN PLATELET VOLUME 9.3 fL (9.0-12.2); MONOCYTES # (AUTO) 1.1 10^3/uL (0.0-1.0); MONOCYTES % (AUTO) 9 % (0-12); NEUTROPHILS # (AUTO) 9.4 10^3/uL (1.8-7.8); NEUTROPHILS % (AUTO) 77 % (42-75); PLATELET COUNT 473 10^3/uL (130-400); WHITE BLOOD COUNT 12.3 10^3/uL (4.3-11.0)
[2021-06-06 18:04] LABS: POTASSIUM 3.4 MMOL/L (3.6-5.0)
[2021-06-06 18:05] LABS: CALCIUM 9.7 MG/DL (8.5-10.1)
[2021-06-06 18:09] LABS: CREATININE SERUM 0.69 MG/DL (0.60-1.30)
[2021-06-06] MEDS ORDERED: RX-CLINDAMYCIN 150 MG (CLEOCIN) CAP PPK#4 PO STA (18:18)
[2021-06-06] MEDS ORDERED: AMOX500C2 PO (18:21)
[2021-06-06 19:17] VITALS: BP 110/88
== END 2021-06-06 19:21 | disposition home or self-care (01) ==
LOC: EDUNIT# 16:53 → ER 16:54
DX: K04.7 Periapical abscess without sinus (principal)
CPT/HCPCS: 36415; 80048; 84703; 85025

== ENCOUNTER 2021-07-04 01:27 | Emergency (ER) | payer SELFPAY ==
[~2021-07-04] VITALS: Ht 170.2 cm; Wt 88.5 kg
[~2021-07-04 01:27] MED LIST changes: +ACHD5005 PO; +AMOX500C2 PO
[2021-07-04 01:40] VITALS: BP 117/68
--- NOTE | 2021-07-04 03:12 | ED Back Pain ---
General Chief Complaint: Back Problems Stated Complaint: PAIN IN HIP/BACK Nursing Triage Note: Pt arrives via POV from home for c/o right sided back pain that radiates down her right leg et up her right neck; onset two nights ago. Pt denies known injury/trauma to the area. Source of Information: Patient History of Present Illness Date Seen by Provider: Jul 04, 2021 Time Seen by Provider: 02:12 Initial Comments PT ARRIVES VIA POV FROM HOME C/O LOWER BACK PAIN--MOSTLY ON THE RIGHT SIDE, AND RADIATES TO RIGHT LATERAL HIP AREA--FOR THE LAST 2-3 DAYS ALSO C/O PAIN TO RIGHT LATERAL NECK WELL NO KNOWN INJURY OR UNUSUAL ACTIVITY. PT IS UNEMPLOYED. NO PARESTHESIAS OR MOTOR DEFICITS NO URINARY SYMPTOMS NO ABDOMINAL PAIN NO NAUSEA/VOMITING NO FEVER DENIES HISTORY OF SIMILAR STATES SHE STAYED IN BED ALL DAY YESTERDAY AND TODAY--STATES IT HURTS TO MOVE HER BACK HAS NOT TAKEN ANYTHING FOR PAIN AT ANY TIME. LMP--UNKNOWN--SHE THINKS SOME TIME IN MAY. HAS HAD BTL. Other Comments PCP: NONE Allergies and Home Medications Allergies Coded Allergies: No Known Drug Allergies (Unverified , 06/27/18) Patient Home Medication List Home Medication List Reviewed: Yes Amoxicillin (Amoxicillin) 500 Mg Capsule, 500 MG PO TID Prescribed by: DANIEL ROMERO on 06/06/21 1821 Hydrocodone/Acetaminophen (Hydrocodone/Acetaminophen 5 MG/325 MG TAB) 1 Each Tablet, 1 EACH PO Q6H PRN for PAIN-MODERATE Prescribed by: DANIEL ROMERO on 06/27/18 1258 Hydrocodone/Acetaminophen (Hydrocodone-Acetamin 5-325 mg) 1 Each Tablet, 1 TAB PO Q4H PRN for PAIN-MODERATE (5-7) Prescribed by: DANIEL ROMERO on 06/06/21 1716 Naproxen (Naproxen) 500 Mg Tablet.dr, 500 MG PO BID Prescribed by: ELAINE WISDOM on 07/04/21 0356 Nitrofurantoin Monohyd/M-Cryst (Macrobid 100 mg Capsule) 100 Mg Capsule, 1 TAB PO BID Prescribed by: ELAINE WISDOM on 07/04/21 0356 Penicillin V Potassium (Penicillin V Potassium) 500 Mg Tablet, 500 MG PO TID Prescribed by: DANIEL ROMERO on 06/27/18 1257 Sulfamethoxazole/Trimethoprim (Bactrim Ds Tablet) 1 Each Tablet, 1 EACH PO Q12H Prescribed by: GILSON GUO on 04/15/202207 Review of Systems Constitutional: no symptoms reported Respiratory: no symptoms reported Cardiovascular: no symptoms reported Gastrointestinal: no symptoms reported Genitourinary: no symptoms reported Control/STD Prophylaxis: Other (BTL) Musculoskeletal: see HPI, back pain Skin: no symptoms reported; No rash Psychiatric/Neurological: No Symptoms Reported Past Aeyiwyn-Ddcqjm-Dtcjqr Hx Patient Social History Tobacco Use?: No Smoking Status: Never a Smoker Use of E-Cig and/or Vaping dev: No Substance use?: Yes Substance type: Amphetamines, Methamphetamine, Marijuana Alcohol Use?: No Pt feels they are or have been: No Immunizations Up To Date Tetanus Booster (TDap): Unknown Influenza Vaccine Up-to-Date: No; Not Current Seasonal Allergies Seasonal Allergies: No Past Medical History Surgeries: No Respiratory: No Cardiac: No Neurological: No 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 oz. 99.809276js; 30.00 BMI Method:Stated General Appearance: Obese, Other (MOVES VERY SLOWLY AND DRAMATICALLY ON EXAM. IS LAYING COMPLETELY OUTSTRETCHED, WITH ANKLES CROSSED. KEEPS EYES CLOSED, APPEARS DROWSY. ) Neck: Full Range of Motion, Supple, Other (TENDERNESS TO RIGHT LATERAL NECK AND TRAPEZIUS AREA. PALPATION REPRODUCES PAIN. NO BONY TENDERNESS. NO SPINE TENDERNESS. ) Cardiovascular: Regular Rate, Rhythm, No Edema, No Murmur, Normal Peripheral Pulses Respiratory: Normal Breath Sounds Gastrointestinal: Non Tender, Soft Back: CVA Tenderness (R); No Vertebral Tenderness; Other (TENDERNESS TO RIGHT POSTERIOR ILIAC CREST AREA AND RIGHT LATERAL HIP AREA. FULL ROM. DTR'S INTACT. NO RASH PRESENT. 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 FRONTAL ASPECT OF HAIR HAS BEEN PULLED OUT) Progress/Results/Core Measures Results/Orders Lab Results Laboratory Tests Test 07/04/21 03:30 Range/Units Urine Color YELLOW Urine Clarity CLEAR Urine pH 6.5 5-9 Urine Specific [place] >=1.030 1.016-1.022 Urine Protein 1+ H NEGATIVE Urine Glucose (UA) NEGATIVE NEGATIVE Urine Ketones NEGATIVE NEGATIVE Urine Nitrite NEGATIVE NEGATIVE Urine Bilirubin NEGATIVE NEGATIVE Urine Urobilinogen 0.2 < = 1.0 MG/DL Urine Leukocyte Esterase 2+ H NEGATIVE Urine RBC (Auto) NEGATIVE NEGATIVE Urine RBC 0-2 /HPF Urine WBC 5-10 H /HPF Urine Squamous Epithelial Cells 2-5 /HPF Urine Crystals NONE /LPF Urine Bacteria TRACE /HPF Urine Casts NONE /LPF Urine Mucus NEGATIVE /LPF Urine Culture Indicated YES Urine Opiates Screen NEGATIVE NEGATIVE Urine Oxycodone Screen NEGATIVE NEGATIVE Urine Methadone Screen NEGATIVE NEGATIVE Urine Propoxyphene Screen NEGATIVE NEGATIVE Urine Barbiturates Screen NEGATIVE NEGATIVE Ur Tricyclic Antidepressants Screen NEGATIVE NEGATIVE Urine Phencyclidine Screen NEGATIVE NEGATIVE Urine Amphetamines Screen POSITIVE H NEGATIVE Urine Methamphetamines Screen POSITIVE H NEGATIVE Urine Benzodiazepines Screen NEGATIVE NEGATIVE Urine Cocaine Screen NEGATIVE NEGATIVE Urine Cannabinoids Screen POSITIVE H NEGATIVE My Orders Orders - ELAINE WISDOM DO Urine Bedside (07/04/21 02:21) Drug Screen Stat (Urine) (07/04/21 02:21) Ua Culture If Indicated (07/04/21 02:21) Urine Culture (07/04/21 03:30) Rx-Nitrofurantoin Barber (Rx-Macrobid) (07/04/21 03:59) Rx-Naproxen (Rx-Naprosyn) (07/04/21 03:59) Naproxen Tablet (Naprosyn Tablet) (07/04/21 04:15) Vital Signs/I&O 07/04/21 01:40 Temp 36.2 Pulse 79 Resp 18 B/P (MAP) 117/68 (84) Pulse Ox 100 O2 Delivery Room Air Blood Pressure Mean: 84 Progress Progress Note : Progress Note PT WENT TO SLEEP SOON I LEFT ROOM--HAS JEANMARIE PULLED OVER HER FACE AND LARGE ROBE AND BLANKET FROM HOME PT GIVEN WATER TO DRINK SO SHE CAN GIVE URINE SPECIMEN--WILL NOT EVEN ATTEMPT TO TRY TO GIVE URINE SPECIMEN ON ARRIVAL. SLEPT SOUNDLY THROUGHOUT MOST OF ER STAY PT AMBULATES ON HER OWN OUT OF ER Departure Impression Primary Impression: RIGHT SIDED BACK AND NECK PAIN Additional Impressions: Urinary tract infection Illicit drug use Disposition: HOME, SELF-CARE Condition: Stable Departure-Patient Inst. Decision time for Depature: 03:54 Referrals: NO,LOCAL PHYSICIAN (PCP/Family) Primary Care Physician Patient Instructions: Drug Abuse and Drug Addiction (DC), Generalized Neck Pain (DC), Low Back Pain (DC), Urinary Tract Infections in Adults Add. Discharge Instructions: ALTERNATE ICE AND HEAT TO SORE AREAS AT 20 MINUTE INTERVALS FOLLOW UP WITH OF CHOICE IN 3-4 DAYS IF NO BETTER All discharge instructions reviewed with patient and/or family. Voiced understanding. Scripts Nitrofurantoin Monohyd/M-Cryst (Macrobid 100 mg Capsule) 100 Mg Capsule 1 TAB PO BID, #20 CAP Prov: ELAINE WISDOM DO 07/04/21 Naproxen (Naproxen) 500 Mg Tablet. 500 MG PO BID, #20 TAB Prov: ELAINE WISDOM DO 07/04/21 Work/School Note: Local Medical Staff Listing ELAINE WISDOM DO Jul 04, 2021 03:12
[2021-07-04 03:39] LABS: BILIRUBIN,URINE NEGATIVE (NEGATIVE); CLARITY,URINE CLEAR; COLOR,URINE YELLOW; GLUCOSE, URINE (UA) NEGATIVE (NEGATIVE); KETONES,URINE NEGATIVE (NEGATIVE); LEUKOCYTE ESTERASE ,URINE 2+ (NEGATIVE); NITRITE,URINE NEGATIVE (NEGATIVE); PH,URINE 6.5 (5-9); PROTEIN,URINE 1+ (NEGATIVE)
[2021-07-04 03:52] LABS: AMPHETAMINE SCREEN, URINE POSITIVE (NEGATIVE); BARBITURATE SCREEN URINE NEGATIVE (NEGATIVE); BENZODIAZEPINES SCREEN URINE NEGATIVE (NEGATIVE); CANNABINOID SCREEN, URINE POSITIVE (NEGATIVE); COCAINE SCREEN URINE NEGATIVE (NEGATIVE); METHADONE STAT NEGATIVE (NEGATIVE); METHAMPHETAMINE SCREEN URINE S POSITIVE (NEGATIVE); OPIATE SCREEN URINE NEGATIVE (NEGATIVE); OXYCODONE STAT NEGATIVE (NEGATIVE); PROPOXYPHENE STAT NEGATIVE (NEGATIVE); TRICYCLIC ANTIDEPRESSANTS SCRE NEGATIVE (NEGATIVE)
[2021-07-04 03:53] LABS: BACTERIA,URINE TRACE /HPF; RBC,URINE 0-2 /HPF
[2021-07-04] MEDS ORDERED: NAPR500T8 PO (03:56)
[2021-07-04] MEDS ORDERED: NITR-65 PO (03:56)
[2021-07-04] MEDS ORDERED: RX-NAPROXEN (NAPROSYN) 250 MG TAB PPK#4 PO STA (03:59)
[2021-07-04] MEDS ORDERED: RX-NITROFURANTOIN 100 MG (MACROBID) CAP PPK#2 PO STA (03:59)
[2021-07-04] MEDS ORDERED: NAPROXEN 250 MG (NAPROSYN) TABLET PO ONE (04:15)
== END 2021-07-04 04:18 | disposition home or self-care (01) ==
LOC: EDUNIT# 01:27 → ER 01:29
DX: M54.50 Low back pain, unspecified (principal); M54.2 Cervicalgia; N39.0 Urinary tract infection, site not specified; F19.90 Other psychoactive substance use, unspecified, uncomplicated
CPT/HCPCS: 80306; 81000; 84703; 87088; 99283